=== PATIENT | female | born 2000 | race Two or more races ===

== ENCOUNTER → 2018-08-29 12:47 | Outpatient (CLI) | payer SELFPAY ==
[2018-09-02 06:09] LABS: Neisseria gonorrhoeae, NAA Negative (Negative)
== END ==
PROVIDERS: Visit Provider Nurse Practitioner Obstetrics & Gynecology
DX: Z72.51 High risk heterosexual behavior (principal); N75.0 Cyst of Bartholin's gland; Z22.322 Carrier or suspected carrier of Methicillin resistant Staphylococcus aureus
CPT/HCPCS: 87070; 87077; 87205; 87491; 87591

== ENCOUNTER → 2020-02-18 10:24 | Outpatient (CLI) | payer OTHER, SELFPAY | PROVIDERS: Visit Provider Nurse Practitioner Obstetrics & Gynecology | DX: L02.31 Cutaneous abscess of buttock (principal) | CPT/HCPCS: 87070; 87077; 87205 ==

== ENCOUNTER 2025-03-03 12:16 | Outpatient (CLI) | payer SELFPAY ==
[2025-03-03 12:19] VITALS: BMI 23.9
[2025-03-03 12:56] LABS: Basophils % 0.5 % (0.1-2.0); Eosinophils # 0.1 Kmm3 (0.0-0.4); Eosinophils % 1.3 % (0.1-12.0); Hematocrit 42.3 % (37.0-47.0); Hemoglobin 14.1 g/dL (12.2-16.2); Immature Granulocytes # 0.02 10^3uL; Immature Granulocytes % 0.3 %; Lymphocytes # 2.3 K/mm3 (0.7-4.5); Mean Corpuscular HGB Conc 33.3 g/dL (31.8-35.4); Mean Corpuscular Hemoglobin 29.8 pg (27.0-31.2); Mean Corpuscular Volume 89.4 fl (81-99); Mean Platelet Volume 9.7 fl (7.4-10.4); Monocytes # 0.4 K/mm3 (0.1-1.0); Monocytes % 5.6 % (1.7-9.3); Neutrophils % 63.3 % (37.0-80.0); Nucleated Red Blood Cells # 0 10^3/uL; Nucleated Red Blood Cells % 0 %; Platelet Count 321 K/mm3 (142-424); Red Blood Count 4.73 M/mm3 (4.20-5.40); Red Cell Distribution Width 13.1 % (11.5-17.5); Red Cell Distribution Width-SD 42.9 fL; White Blood Count 7.8 K/mm3 (4.8-10.8)
[2025-03-03 12:57] LABS: Albumin Level 4.2 g/dl (3.5-5.0); Chloride 108 mmol/L (98-107); Potassium 4.1 mmoL/L (3.5-5.1); Sodium 137 mmol/L (136-145)
[2025-03-03 12:59] LABS: Alanine Aminotransferase 19 U/L (12-78); Aspartate Amino Transferase 26 U/L (14-36); Blood Urea Nitrogen 11 mg/dl (7-17); Creatinine Clearance Estimated 118 mL/min (50-200); Estimated Glomerular Filt Rate 101 ml/min (>60); GFR (African American) 122 ML/MIN (>60)
[2025-03-03 13:00] LABS: Albumin/Globulin Ratio 1.4 (1.1-1.8); Alkaline Phosphatase 49 U/L (38-126); Anion Gap 8.1 mEq/L (5-15); Bilirubin,Total 0.6 mg/dl (0.2-1.3); Calcium 9.3 mg/dl (8.4-10.2); Carbon Dioxide 25 mmol/L (22.0-30.0); Glucose 89 mg/dl (74-100); Total Protein,Serum 7.2 g/dl (6.3-8.2)
[2025-03-03 13:35] LABS: HCG Qualitative, Serum Negative (Negative)
== END 2025-03-03 23:59 | disposition home or self-care (01) ==
LOC: PREOP 12:17
PROVIDERS: PCP Family Medicine; Visit Provider Nurse Practitioner Obstetrics & Gynecology
DX: Z01.812 Encounter for preprocedural laboratory examination (principal)
CPT/HCPCS: 80053; 84703; 85025

== ENCOUNTER 2025-03-09 06:02 | Day surgery (SDC) | payer SELFPAY ==
[2025-03-03 13:20] VITALS: BMI 24.0
[2025-03-09] VITALS (9 sets, daily range): BP systolic 87–124; BP diastolic 51–76; PULSE 66–97; RESP 12–18; TEMP 36.5–36.9; O2SAT 96–100
[2025-03-09] MEDS: LIDOCAINE 1% W/EPI 1:100,000 20ML VIAL 20 ML (07:45)
--- NOTE | 2025-03-09 07:48 | EXP.ANES.CKL ---
[facility] Disclaimer: The information contained in this section may have been updated after the patient was seen, as this information can be updated by other users. Medical History No significant past medical history Surgical History No history of previous surgery Family History Other Cancer Social History Smoking Status: Former smoker smoking status start date: Former vapor alcohol intake: never substance use type: denies use current occupational status: employed Travel in the last 8 weeks?: None Have you lived/traveled outside [place] in past 30 days?: No Contact w/someone who lives/traveled outside [place] past 30 days?: No Exposure to someone with infectious disease in past 14 days?: No Do you have a fever (greater than 100.4 F or 38 C)?: No Have you tested positive for COVID-19?: No Exposed to someone with COVID-19 in past 14 days?: No Do you have a sore throat?: No Do you have a cough?: No Do you have any weakness?: No Do you have any diarrhea?: No Are you experiencing any unusual bleeding?: No Do you have any muscle aches/pain?: No Do you have any abdominal pain?: No Are you experiencing loss of taste or smell?: No [facility] Anesthesia Checklist Patient Identification Patient Identification: Verbal (Name & ) Structural Data Admitted From: Home Planned Operative Procedure/s: d/c cone bx Consent for Planned Operative Procedure(s) Verified: Yes NPO Status Verified Time NPO: 00:00 Additional verifications Anesthesia Reactions: No Hx Blood Transfusions: No Blood Transfusion Reaction: No Airway Assessment Mallampati Score:: Class I C-Spine Mobility Assessed: Yes TMJ Mobility Assessed: Yes Dentition: Good Dentition Neurological Assessment Level of Consciousness: Awake, Alert and Appropriate Anesthesia Plan Anesthesia Risk discussed: Yes Anesthesia Plan: Verified ASA Class: I Anesthesia Type: General
--- NOTE | 2025-03-09 08:02 | P.PNANES_ITS ---
[facility] Anesthesia Record Part I Anesthesia Record I Intake, IV Amount: 1,000 Hydration: Adequate Estimated blood loss (mL): 10 Urine output (mL): 0 Blood Pressure: 104/56 SaO2: 96 Pulse Rate: 90 Airway Patency: Patent Respiratory Rate: 12 Temperature: 97.8 F Patient is:: Awake and Stable Stable to PACU at:: 08:00
--- NOTE | 2025-03-09 08:21 | EXP.OP.NOTE ---
Date of procedure: 03/09/25 Pre-op Diagnosis:: High-grade squamous intraepithelial lesion of the cervix. Post-op Diagnosis:: High-grade squamous intraepithelial lesion of the cervix Procedure performed:: Colon see and endocervical curettage Surgeon:: Ruel Marvin MD MANAGER [employer]:: Aly Bowen Anesthesia: LMA Estimated blood loss (mL): 10 Clinical Note:: She is a 24-year-old 0 para 0 young lady who had a recent Pap smear that showed HGSIL. Biopsies confirmed this. As result of that she is offered cone biopsy and Endo rectal curettage. Operative findings:: She had a normal-appearing cervix. We applied Lugol solution and there were no areas that did not take up to Lugol's. Operative note:: She states the operating room where LMA anesthesia was found be adequate. She was prepped and draped in the normal sterile fashion in the lithotomy position. A weighted speculum is placed in the vagina and the anterior lip of the cervix was grasped with a tenaculum. I then injected 20 cc of 1% Xylocaine with epinephrine circumferentially by the cervix. Then using an 11 blade I removed a cylindrical shape portion of the cervix. It was approximately 12 mm wide and I went to the depth of the 11 blade. I then amputated this tissue from the base. I then performed a gentle endocervical curettage. The specimens were sent to pathology. I then inserted 2-0 Vicryl sutures starting at the 12 o'clock position from outside in and then inside out. The sutures were tied. I placed 4 sutures in total around the cervix. I then cauterized around the external aspect of the cervical incision line. After once again assuring hemostasis I elected to place a small amount of Monsel solution in the defect. Hemostasis was once again assured. She tolerated procedure well and was taken the recovery room in excellent condition. All sponge, instrument and needle counts were correct. The estimated blood loss was less than 10 cc. Condition: stable Disposition: PACU Specimens:: Cone biopsy, endocervical Complications:: None
--- NOTE | 2025-03-11 08:42 | EXP.ANES.II ---
[facility] Anesthesia Record Part II Anesthesia Record Part II Discharge Time: 08:30 Destination: [facility] PACU nurse assessment reviewed?: Yes Patient Condition:: Good Anesthesia Complications:: None Swallowing reflex intact?: Yes Airway Patency: Patent Cyanosis?: No Blood Pressure: 110/66 SaO2: 99 Respiratory Rate: 16 Pulse Rate: 71 Temperature: 97.7 F Mental Status: Alert & Oriented Pain level:: 0 Nausea and/or vomitting:: None Intake, IV Amount: 1,500 Hydration: Adequate
[2025-03-11 08:43] VITALS: BP 110/66; PULSE 71; RESP 16; TEMP 36.5; O2SAT 99
== END 2025-03-09 09:01 | disposition home or self-care (01) ==
PROVIDERS: PCP Family Medicine; Visit Provider Nurse Practitioner Obstetrics & Gynecology
PROC: 0UBC7ZZ Excision of Cervix, Via Natural or Artificial Opening (ICD-10-PCS; CPT 57520; principal; 2025-03-09 07:30)
DX: R87.613 High grade squamous intraepithelial lesion on cytologic smear of cervix (HGSIL) (principal)
CPT/HCPCS: 57520; J1100; J2250; J2405; J3010